=== PATIENT | female | born 1965 | race Caucasian/White ===

== ENCOUNTER 2020-10-14 04:55 | Emergency (ER) | payer BC ==
[~2020-10-14] VITALS: Ht 157.5 cm; Wt 86.2 kg
[~2020-10-14 04:55] MED LIST: SUMA50TA2 PO
[2020-10-14 05:04] VITALS: BP 131/68
[2020-10-14] MEDS ORDERED: IBUPROFEN 800 MG TAB PO ONE (06:45)
== END 2020-10-14 07:06 | disposition home or self-care (01) ==
LOC: ER 04:55
DX: S50.12XA Contusion of left forearm, initial encounter (principal); W22.8XXA Striking against or struck by other objects, initial encounter; Y93.89 Activity, other specified; Y92.89 Other specified places as the place of occurrence of the external cause; Y99.8 Other external cause status; Z90.710 Acquired absence of both cervix and uterus; Z91.041 Radiographic dye allergy status
CPT/HCPCS: 73090